=== PATIENT | female | born 1960 | race Caucasian/White ===

== ENCOUNTER 2016-06-24 12:14 | Observation (INO) | payer OTHER, MEDICAID ==
[2016-06-24] MEDS ORDERED: ASPIRIN 81 MG CHEWABLE TAB PO ONE (12:19)
[2016-06-24] MEDS ORDERED: NS 500 ML IV ONE (12:19)
--- NOTE | 2016-06-24 12:21 | EDPHY ---
H & P HPI/ROS: HPI CHIEF COMPLAINT: Palpitation, chest pressure HISTORY OF PRESENT ILLNESS: This patient is a 55-year-old female she does have significant past medical history for bipolar disorder and fibromyalgia, no known coronary or lung disease, she presents to the emergency room by EMS for chest discomfort. She describes a pressure center of her chest at times it radiates to her left shoulder. At times she does have tingling in her arms. She tells me this has been going on over the past week. Intermittently. HEENT she has never had this before. She also tells me she feels dyspneic with this. She does endorse a dry cough nonproductive no recent illness no fever. She decided to call 911 arrived by EMS due to the pressure in her chest that has been persisted. Past Medical History: Fibromyalgia, bipolar disorder Social History: Smokes cigarettes Family History: Noncontributory ROS REVIEW OF SYSTEMS: A comprehensive 10 point review of systems is otherwise negative aside from elements mentioned in the history of present illness. Exam Constitutional triage nursing summary reviewed, vital signs reviewed, awake/ alert. Eyes normal conjunctivae and sclera, EOMI, PERRLA. HENT normal inspection, atraumatic, moist mucus membranes, no epistaxis, neck supple/ no meningismus, no raccoon eyes. Respiratory clear to auscultation bilaterally, normal breath sounds, no respiratory distress, no wheezing. Cardiovascular rate normal, regular rhythm, no murmur, no edema, distal pulses normal. Gastrointestinal soft, non-tender, no rebound, no guarding, normal bowel sounds, no distension, no pulsatile mass. Genitourinary no CVA tenderness. Musculoskeletal no midline vertebral tenderness, full range of motion, no calf swelling, no tenderness of extremities, no meningismus, good pulses, neurovascularly intact. Skin pink, warm, & dry, no rash, skin atraumatic. Neurologic awake, alert and oriented x 3, AAOx3, moves all 4 extremities equally, motor intact, sensory intact, CN II-XII intact, normal cerebellar, normal vision, normal speech. Psychiatric normal mood/affect. Heme/Lymph/Immune no lymphadenopathy. Differential diagnosis includes but is not limited to: ACS, atypical chest pain , pneumothorax, pneumonia, pulmonary embolism, aortic dissection, congestive heart failure, tumor, musculoskeletal pain, esophageal pain, GERD, peptic ulcer disease, pancreatitis Medical Decision Making:The patient will be placed on a full ekg monitor tech IV will be established, patient receive full-dose aspirin, nitroglycerin to see if this improves her chest pressure. Will check an EKG, chest x-ray blood work. Re-evaluation: EKG interpretation by me on record in [employer] system. Impression time of EKG 1222 this is a normal sinus rhythm rate of 70 there is no acute ischemic change appreciated specifically no ST elevation, ST depression T-wave abnormality. 1316: Re-evaluation at this time: Patient is resting comfortably she is chest pain-free. Her EKG is nonischemic troponin is negative. Chest x-ray reviewed shows no acute disease. Due to her description of chest discomfort and history of cigarette use and age should be admitted to [facility] for chest pain evaluation and rule out. Patient does understand should be admitted for observation serial enzymes for her chest pain. Here in the emergency room she did receive full-dose aspirin and nitroglycerin this did improve her chest discomfort. 1320: Spoke with the hospitalist service agrees to admit this patient. Dr. Mccoy has accepted. Patient is hemodynamically stable for [facility] admission chest pain rule out pain Source: Patient, EMS - Medical/Surgical History Hx Asthma: No Hx Chronic Respiratory Disease: No Hx Diabetes: No Hx Cardiac Disease: No Hx Renal Disease: No Hx Cirrhosis: No Hx Alcoholism: No Hx HIV/AIDS: No Hx Splenectomy or Spleen Trauma: No Other PMH: pmh- anxiety, GERD, bipolar, UTI's, fibromyalgia, endometriosis, sciatica, herpes, chronic pain. psh- adrien, hysterectomy, , R knee arthroscopy, - Social History Smoking Status: Current every day smoker Constitutional: Initial Vital Signs O2 Sat (%) 96 06/24/16 12:19 O2 Delivery Mode Room Air O2 (L/minute) 2 Allergies/Adverse Reactions: codeine [Codeine] Allergy (Verified 06/24/16 12:23) codeine phosphate [From Tylenol-Codeine #3] Allergy (Verified 06/24/16 12:23) gluten Allergy (Verified 06/24/16 12:23) hydrocodone bitartrate [From Vicodin] Allergy (Verified 06/24/16 12:23) METAL Allergy (Uncoded 12/30/15 14:16) MOST PAIN MEDICATIONS Allergy (Uncoded 08/08/16 14:16) Home Medications: Medication Instructions Recorded clonazePAM [klonoPIN (*)] 0.5 - 1 mg PO DAILY PRN 01/16/16 Acyclovir [Zovirax 400 mg (*)] 400 mg PO BID #60 tab 01/24/16 Diclofenac Potassium [Zipsor] 25 mg PO QID #120 capsule 01/24/16 Docusate Sodium [Colace 100 MG (*)] 100 mg PO BID #0 cap 01/24/16 Omeprazole [Prilosec 20 mg] 40 mg PO BID #60 capsule. 01/24/16 QUEtiapine FUMARATE [Seroquel 200 400 mg PO HS #60 tab 01/24/16 mg (*)] Rosuvastatin Calcium [Crestor] 10 mg PO DAILY #30 tab 01/24/16 clonazePAM [klonoPIN (*)] 1 mg PO HS #30 tab 01/24/16 Crestor 06/24/16 LaMICtal 06/24/16 Medical Decision Making - Data Points Laboratory Results: Laboratory Results 06/24/16 12:15 06/24/16 12:15 06/24/16 12:15 WBC 5.73 10^3/uL (3.80-9.50) RBC 4.55 10^6/uL (4.18-5.33) Hgb 13.9 g/dL (12.6-16.3) Hct 41.7 % (38.0-47.0) MCV 91.6 fL (81.5-99.8) MCH 30.5 pg (27.9-34.1) MCHC 33.3 g/dL (32.4-36.7) RDW 14.7 % (11.5-15.2) Plt Count 231 10^3/uL (150-400) MPV 9.8 fL (8.7-11.7) Neut % (Auto) 70.6 % (39.3-74.2) Lymph % (Auto) 24.4 % (15.0-45.0) [place] % (Auto) 4.2 L % (4.5-13.0) Eos % (Auto) 0.2 L % (0.6-7.6) Baso % (Auto) 0.3 % (0.3-1.7) Nucleat RBC Rel Count 0.0 % (0.0-0.2) Absolute Neuts (auto) 4.04 10^3/uL (1.70-6.50) Absolute Lymphs (auto) 1.40 10^3/uL (1.00-3.00) Absolute Monos (auto) 0.24 L 10^3/uL (0.30-0.80) Absolute Eos (auto) 0.01 L 10^3/uL (0.03-0.40) Absolute Basos (auto) 0.02 10^3/uL (0.02-0.10) Absolute Nucleated RBC 0.00 10^3/uL (0-0.01) Immature Gran % 0.3 % (0.0-1.1) Immature Gran # 0.02 10^3/uL (0.00-0.10) PT 13.1 SEC (12.0-15.0) INR 1.00 (0.83-1.16) APTT 27.4 SEC (23.0-38.0) D-Dimer < 0.27 ug/mLFEU (0.00-0.50) Sodium 145 H mEq/L (134-144) Potassium 4.2 mEq/L (3.5-5.2) Chloride 109 mEq/L (97-110) Carbon Dioxide 27 mEq/l (22-31) Anion Gap 9 mEq/L (8-16) BUN 11 mg/dL (7-23) Creatinine 0.8 mg/dL (0.6-1.0) Estimated GFR > 60 Glucose 121 H mg/dL (70-100) Calcium 9.4 mg/dL (8.5-10.4) Magnesium 1.8 mg/dL (1.6-2.3) Total Bilirubin 0.5 mg/dL (0.1-1.4) Conjugated Bilirubin 0.3 mg/dL (0.0-0.5) Unconjugated Bilirubin 0.2 mg/dL (0.0-1.1) AST 22 IU/L (14-46) ALT 26 IU/L (9-52) Alkaline Phosphatase 100 IU/L (38-126) Creatine Kinase 132 IU/L (0-156) CK-MB (CK-2) Fraction 1.49 ng/mL (0-3.19) Troponin I < 0.012 ng/mL (0-0.034) NT-Pro-B Natriuret Pep 53 pg/mL (0-125) Total Protein 7.0 g/dL (6.3-8.2) Albumin 4.0 g/dL (3.5-5.0) Lipase 134.0 IU/L (23-300) Medications Given: Discontinued Medications Aspirin (Aspirin) 324 mg PO EDNOW ONE Stop: 06/24/16 12:20 Last Admin: 06/24/16 12:26 Dose: Not Given Sodium Chloride (Ns) 500 mls @ 0 mls/hr IV ONCE ONE PRN Reason: As Directed Stop: 06/24/16 12:20 Last Admin: 06/24/16 12:32 Dose: 500 mls Nitroglycerin (Nitrostat) 0.4 mg SL Q5M PRN PRN Reason: Chest Pain Stop: 06/24/16 12:30 Last Admin: 06/24/16 12:42 Dose: 1 tab Departure - Departure Disposition: [facility] Inpatient Acute Clinical Impression: Chest pain Qualifiers: Chest pain type: unspecified Qualifier Code: (R07.9) Chest pain, unspecified Condition: Fair Referrals: Alecia Galvin, [employer]MICAL TECHNICIAN [Primary Care Provider] - As per Instructions
--- NOTE | 2016-06-24 12:25 | CPEKG ---
Heart Rate: 78 RR Interval: 769 P-R Interval: 148 QRSD Interval: 78 QT Interval: 372 QTC Interval: 424 P Wid[place]: 45 QRS Widener: 5 T Wave Wid[place]: 12 EKG Severity - NORMAL ECG - EKG Impression: SINUS RHYTHM Electronically Signed By: Vince Mccauley 26-Jun-2016 05:38:57
[2016-06-24 12:26] VITALS: RESP 18
[2016-06-24] MEDS: NITROGLYCERIN 0.4 MG BTL SL PRN ×2 (12:32→12:42)
[2016-06-24 12:33] LABS: % IMMATURE GRANULYOCYTES 0.3 % (0.0-1.1); ABSOLUTE IMMATURE GRANULOCYTES 0.02 10^3/uL (0.00-0.10); ADD DIFF? NO; ADD MORPH? NO; ADD SCAN? NO; ATYPICAL LYMPHOCYTE FLAG 0 (0-99); FRAGMENT RBC FLAG 0 (0-99); HEMATOCRIT 41.7 % (38.0-47.0); HEMOGLOBIN 13.9 g/dL (12.6-16.3); LEFT SHIFT FLG 0 (0-99); LIPEMIA HEMOLYSIS FLAG 80 (0-99); MEAN CELL HEMOGLOBIN 30.5 pg (27.9-34.1); MEAN CELL HEMOGLOBIN CONCENTR. 33.3 g/dL (32.4-36.7); MEAN CELL VOLUME 91.6 fL (81.5-99.8); MEAN PLATELET VOLUME 9.8 fL (8.7-11.7); PLATELET CLUMPS FLAG 10 (0-99); PLATELET COUNT 231 10^3/uL (150-400); RED BLOOD CELL COUNT 4.55 10^6/uL (4.18-5.33); RED CELL DISTRIBUTION WIDTH 14.7 % (11.5-15.2)
[2016-06-24 12:43] LABS: APTT 27.4 SEC (23.0-38.0); PROTIME(PATIENT) 13.1 SEC (12.0-15.0)
[2016-06-24 12:52] LABS: ALANINE AMINOTRANSFERASE 26 IU/L (9-52); ALKALINE PHOSPHATASE 100 IU/L (38-126); ANION GAP 9 mEq/L (8-16); ASPARTATE AMINOTRANSFERASE 22 IU/L (14-46); BILIRUBIN,TOTAL 0.5 mg/dL (0.1-1.4); BILIRUBIN-CONJUGATED 0.3 mg/dL (0.0-0.5); BILIRUBIN-UNCONJUGATED 0.2 mg/dL (0.0-1.1); CALCIUM 9.4 mg/dL (8.5-10.4); CARBON DIOXIDE 27 mEq/l (22-31); CHLORIDE 109 mEq/L (97-110); CREATININE 0.8 mg/dL (0.6-1.0); GLOMERULAR FILTRATION RATE > 60; GLUCOSE 121 mg/dL (70-100); MAGNESIUM 1.8 mg/dL (1.6-2.3); POTASSIUM 4.2 mEq/L (3.5-5.2); SODIUM 145 mEq/L (134-144)
--- NOTE | 2016-06-24 12:53 | DX ---
Portable Chest, Single View 12:36 p.m. Hours Indication: Dizziness and weakness Comparison: Two-view chest dated December 19, 2007 Findings: Hypoventilation and diffuse mild peribronchial thickening are similar to November 2007. No pneu mothorax, airspace consolidation, edema or effusion. Heart size within normal limit for degree of ins piration. Minimal dextrocurvature of the thoracic spine is new. Impression: 1. No acute process. 2. Hypoventilation and mild airways disease similar to 2007.
[2016-06-24 13:01] LABS: CREATINE KINASE-MB FRACTION 1.49 ng/mL (0-3.19); TROPONIN I < 0.012 ng/mL (0-0.034)
[2016-06-24] MEDS ORDERED: HYDROmorphONE/DILAUDID 1 MG/ML SYR IVP ONE (13:16)
[2016-06-24] MEDS ORDERED: KETOROLAC 30 MG/1 ML SDV IVP ONE (13:21)
--- NOTE | 2016-06-24 14:51 | PDCPHP ---
History and Physical Chief Complaint: chest pain - History of Present Illness This is a 55 yo,White female with history of anxiety and hyperlipidemia presents with chest pain. It began at 1000 this morning while she was at rest. The pain is described as a substernal heaviness radiating to neck and left shoulder. The pain was associated with shortness of breath, lightheadedness, and numbness/tingling in her arms. Her symptoms have been ongoing since onset. No relief with NTG or pain meds. No previous episodes. She denies any exacerbating or alleviating factors. History Information - Allergies/Home Medication List Allergies/Adverse Reactions: codeine [Codeine] Allergy (Verified 06/24/16 12:23) codeine phosphate [From Tylenol-Codeine #3] Allergy (Verified 06/24/16 12:23) gluten Allergy (Verified 06/24/16 12:23) hydrocodone bitartrate [From Vicodin] Allergy (Verified 06/24/16 12:23) METAL Allergy (Uncoded 12/30/15 14:16) MOST PAIN MEDICATIONS Allergy (Uncoded 12/30/15 14:16) Home Medications: Acetaminophen [Tylenol 325mg (*)] 325 mg PO DAILY PRN 06/24/16 [Last Taken Unknown] Esomeprazole Mag Trihydrate [Nexium] 40 mg PO DAILY 06/24/16 [Last Taken ] Naproxen Sodium [Aleve 220 MG (*)] 220 mg PO DAILY PRN 06/24/16 [Last Taken Unknown] Rosuvastatin Calcium [Crestor 20mg (*)] 10 mg PO DAILY 06/24/16 [Last Taken 06/09] lamoTRIgine [LamICTAL 100 MG (*)] 100 mg PO HS 06/24/16 [Last Taken 06/23/16] I have personally reviewed and updated: family history, medical history, social history, surgical history Past Medical History: bipolar, hyperlipidemia, hsv2, oculopharyngeal, fibromyalgia - Past Medical History GERD - Surgical History Reports: cholecystectomy, hysterectomy Additional surgical history: c/s, right knee scope - Family History Positive for: diabetes type II - Social History Smoking Status: Current every day smoker Review of Systems ROS: 10pt was reviewed & negative except for what was stated in HPI & below YANG Risk Evaluation age greater or equal to 65: no greater or equal to 3 CAD risk factors: no known CAD(stenosis greater or eqaul to 50%): no ASA use in past 7 days: no severe angina(greater or equal to 2 episodes in 24hrs): no EKG ST changes greater or equal to 0.5mm: no positive cardiac marker: no Total Score: 0 YANG Score: 4.7% risk Physical Exam Temp Pulse Resp BP Pulse Ox 36.8 C 67 18 133/85 H 95 06/24/16 13:57 06/24/16 13:57 06/24/16 13:57 06/24/16 13:57 06/24/16 13:57 O2 (L/minute) 2 Constitutional: no apparent distress, appears nourished, not in pain Eyes: PERRL, anicteric sclera, EOMI Ears, Nose, Mouth, Throat: moist mucous membranes, hearing normal, ears appear normal, no oral mucosal ulcers Cardiovascular: regular rate and rhythym, no murmur, rub, or gallop, No edema Respiratory: no respiratory distress, no rales or rhonchi, clear to auscultation Gastrointestinal: normoactive bowel sounds, soft, non-tender abdomen, no palpable masses Genitourinary: no bladder fullness, no bladder tenderness Skin: warm Musculoskeletal: full muscle strength, no muscle tenderness, normal joint ROM, no joint effusions, other (tenderness to palp over the anterior left chest) Neurologic: AAOx3, CN II-XII Intact, No facial droop Psychiatric: interacting appropriately, not anxious, not encephalopathic, flat affect Lab Data & Imaging Review 06/24/16 12:15 06/24/16 12:15 WBC 5.73 10^3/uL (3.80-9.50) 06/24/16 12:15 RBC 4.55 10^6/uL (4.18-5.33) 06/24/16 12:15 Hgb 13.9 g/dL (12.6-16.3) 06/24/16 12:15 Hct 41.7 % (38.0-47.0) 06/24/16 12:15 MCV 91.6 fL (81.5-99.8) 06/24/16 12:15 MCH 30.5 pg (27.9-34.1) 06/24/16 12:15 MCHC 33.3 g/dL (32.4-36.7) 06/24/16 12:15 RDW 14.7 % (11.5-15.2) 06/24/16 12:15 Plt Count 231 10^3/uL (150-400) 06/24/16 12:15 MPV 9.8 fL (8.7-11.7) 06/24/16 12:15 Neut % (Auto) 70.6 % (39.3-74.2) 06/24/16 12:15 Lymph % (Auto) 24.4 % (15.0-45.0) 06/24/16 12:15 [place] % (Auto) 4.2 % (4.5-13.0) L 06/24/16 12:15 Eos % (Auto) 0.2 % (0.6-7.6) L 06/24/16 12:15 Baso % (Auto) 0.3 % (0.3-1.7) 06/24/16 12:15 Nucleat RBC Rel Count 0.0 % (0.0-0.2) 06/24/16 12:15 Absolute Neuts (auto) 4.04 10^3/uL (1.70-6.50) 06/24/16 12:15 Absolute Lymphs (auto) 1.40 10^3/uL (1.00-3.00) 06/24/16 12:15 Absolute Monos (auto) 0.24 10^3/uL (0.30-0.80) L 06/24/16 12:15 Absolute Eos (auto) 0.01 10^3/uL (0.03-0.40) L 06/24/16 12:15 Absolute Basos (auto) 0.02 10^3/uL (0.02-0.10) 06/24/16 12:15 Absolute Nucleated RBC 0.00 10^3/uL (0-0.01) 06/24/16 12:15 Immature Gran % 0.3 % (0.0-1.1) 06/24/16 12:15 Immature Gran # 0.02 10^3/uL (0.00-0.10) 06/24/16 12:15 PT 13.1 SEC (12.0-15.0) 06/24/16 12:15 INR 1.00 (0.83-1.16) 06/24/16 12:15 APTT 27.4 SEC (23.0-38.0) 06/24/16 12:15 D-Dimer < 0.27 ug/mLFEU (0.00-0.50) 06/24/16 12:15 Sodium 145 mEq/L (134-144) H 06/24/16 12:15 Potassium 4.2 mEq/L (3.5-5.2) 06/24/16 12:15 Chloride 109 mEq/L (97-110) 06/24/16 12:15 Carbon Dioxide 27 mEq/l (22-31) 06/24/16 12:15 Anion Gap 9 mEq/L (8-16) 06/24/16 12:15 BUN 11 mg/dL (7-23) 06/24/16 12:15 Creatinine 0.8 mg/dL (0.6-1.0) 06/24/16 12:15 Estimated GFR > 60 06/24/16 12:15 Glucose 121 mg/dL (70-100) H 06/24/16 12:15 Calcium 9.4 mg/dL (8.5-10.4) 06/24/16 12:15 Magnesium 1.8 mg/dL (1.6-2.3) 06/24/16 12:15 Total Bilirubin 0.5 mg/dL (0.1-1.4) 06/24/16 12:15 Conjugated Bilirubin 0.3 mg/dL (0.0-0.5) 06/24/16 12:15 Unconjugated Bilirubin 0.2 mg/dL (0.0-1.1) 06/24/16 12:15 AST 22 IU/L (14-46) 06/24/16 12:15 ALT 26 IU/L (9-52) 06/24/16 12:15 Alkaline Phosphatase 100 IU/L (38-126) 06/24/16 12:15 Creatine Kinase 132 IU/L (0-156) 06/24/16 12:15 CK-MB (CK-2) Fraction 1.49 ng/mL (0-3.19) 06/24/16 12:15 Troponin I < 0.012 ng/mL (0-0.034) 06/24/16 12:15 NT-Pro-B Natriuret Pep 53 pg/mL (0-125) 06/24/16 12:15 Total Protein 7.0 g/dL (6.3-8.2) 06/24/16 12:15 Albumin 4.0 g/dL (3.5-5.0) 06/24/16 12:15 Lipase 134.0 IU/L (23-300) 06/24/16 12:15 Urine Opiates Screen NEGATIVE (NEGATIVE) 06/24/16 13:30 Urine Barbiturates NEGATIVE (NEGATIVE) 06/24/16 13:30 Ur Phencyclidine Scrn NEGATIVE (NEGATIVE) 06/24/16 13:30 Ur Amphetamine Screen NEGATIVE (NEGATIVE) 06/24/16 13:30 U Benzodiazepines Scrn NEGATIVE (NEGATIVE) 06/24/16 13:30 Urine Cocaine Screen NEGATIVE (NEGATIVE) 06/24/16 13:30 U Marijuana (THC) Screen NEGATIVE (NEGATIVE) 06/24/16 13:30 Visualized and Interpreted Chest x-ray results: Yes Chest X-Ray results: normal Visualized and Interpreted EKG results: Yes EKG Interpretation: Positive for: normal sinsus rhythm (78 bpm). Negative for: Q waves, ST elevation, ST depression Assessment and Plan Assessment: This is a 55 yo,White,F presenting with chest pain at low risk ( YANG 0-1) for Acute coronary syndrome ddx: her pain seems atypical for ACS, most likely costochondritis vs anxiety vs GERD Plan: The patient will be placed in observation due to concerns for Acute Coronary Syndrome. * continuous telemetry to monitor for ST segment changes * monitor vital signs every 4 hours * repeat troponin at 16:00 * Arrange for outpatient stress test once chest pain is resolved, repeat troponin and EKG are negative, and the patient is symptom free for greater than 6 hours from the onset of pain * If the patient develops dynamic EKG changes consistent with ischemia/ infarction, troponin elevation, or has an abnormal stress test the patient will be treated for acute coronary syndrome as clinically indicated. * trial NSAIDS dc home once symptoms are improved
[2016-06-24] MEDS ORDERED: IBUPROFEN 600 MG TAB PO PRN (15:11)
[2016-06-24] MEDS ORDERED: ACETAMINOPHEN 325 MG TAB PO PRN (15:12)
[2016-06-24 15:30] VITALS: BP 113/79; PULSE 79; TEMP 97.7; O2SAT 93
--- NOTE | 2016-06-24 17:49 | GDS ---
[f rep st] DISCHARGE SUMMARY DISCHARGE DIAGNOSIS: Atypical chest pain, likely musculoskeletal in etiology. OBSERVATION COURSE AND STAY BY PROBLEM: Chest pain: The patient presented to the hospital after hav ing chest pain that began at 10 o'clock this morning and has been rather persistent since the onset. During the patient's observation course, she had 2 negative troponins and her second troponin was ne gative 6 hours after the onset of her pain. On exam, her chest pain was reproducible with palpation to the anterior chest wall. During her observation course, she was given Toradol which did help with the pain somewhat however, she continues to have some discomfort over her chest. On the afternoon of 06/24/2016 after the negative troponin came back, the patient verbalized to me an d her nurse that she feels comfortable with going home, which I think is reasonable given the fact th at her chest pain seems to be quite atypical. She will be set up for an outpatient stress test. She was encouraged to follow up with her primary care provider in the next few days for routine hospital followup. DISCHARGE MEDICATIONS: Please refer to discharge medication reconciliation in [facility] for details. There were no new medications added. DISCHARGE INSTRUCTIONS: The patient was discharged home in stable condition. /[id number]/MODL
[2016-06-24] MEDS ORDERED: lamoTRIgine 100 MG TAB PO SCH (21:00)
[2016-06-24] MEDS ORDERED: QUEtiapine FUMARATE 200 MG TAB PO SCH (21:00)
[2016-06-24] MEDS ORDERED: clonazePAM 1 MG TAB PO SCH (21:00)
[2016-06-24] MEDS ORDERED: ACYCLOVIR 400 MG TAB PO SCH (21:00)
[2016-06-25] MEDS ORDERED: ROSUVASTATIN CALCIUM 20 MG TAB PO SCH (09:00)
[2016-06-25] MEDS ORDERED: NON-FORMULARY NEW DRUG (Esomeprazole Mag Trihydrate [Nexium] 40 MG) PO SCH (09:00)
[2016-06-25] MEDS ORDERED: PANTOPRAZOLE SODIUM 40 MG TAB PO SCH (09:00)
== END 2016-06-24 17:41 | disposition home or self-care (01) ==
LOC: EDUNIT# → F1N 15:16
PROVIDERS: ADMIT Family Medicine; ATTEND Family Medicine
DX: R07.9 Chest pain, unspecified (principal); F31.9 Bipolar disorder, unspecified; M79.7 Fibromyalgia; F17.210 Nicotine dependence, cigarettes, uncomplicated; Z87.440 Personal history of urinary (tract) infections; F41.9 Anxiety disorder, unspecified; E78.5 Hyperlipidemia, unspecified; K21.9 Gastro-esophageal reflux disease without esophagitis
CPT/HCPCS: 71010; 93005; 96374; 99285; G0378; J1885; 80305

== ENCOUNTER 2016-07-02 13:11 | Emergency (ER) | payer OTHER, MEDICAID ==
--- NOTE | 2016-07-02 13:20 | CPEKG ---
Heart Rate: 74 RR Interval: 811 P-R Interval: 144 QRSD Interval: 86 QT Interval: 380 QTC Interval: 422 P [place]: 42 QRS [place]: 7 T Wave [place]: 31 EKG Severity - NORMAL ECG - EKG Impression: SINUS RHYTHM Electronically Signed By: Praneeth Marin 02-Jul-2016 13:49:34
--- NOTE | 2016-07-02 13:22 | EDPHY ---
H & P Time Seen by Provider: 07/02/16 13:21 HPI/ROS: CHIEF COMPLAINT: Chest pain HISTORY OF PRESENT ILLNESS: This 55-year-old woman was admitted to [facility] on June 24 of this year for chest pain. She ruled out by enzymes and was supposed to have an outpatient stress test. She presents today with 2 days of left-sided chest pain from her breast radiating to her left shoulder and back which is constant for the past 2 days. It is worse with movement and deep respiration. Not associated with jaw or arm symptoms or coughing or shortness of breath. It is better with ibuprofen. REVIEW OF SYSTEMS: Eye: no change in vision ENT: no sore throat Cardiac: HPI, no syncope or palpitations Pulmonary: no cough or SOB Abdomen: no vomiting, diarrhea, abdominal pain Musculoskeletal: no back pain or leg swelling Skin: no rash Neuro: no headache Constitutional: no fever : no urinary symptoms A comprehensive 10 point review of systems is otherwise negative aside from elements mentioned in the history of present illness. PAST MEDICAL HISTORY: Includes bipolar disorder on discharge summary from Dr. Tristan dated 02/19/2016, cholecystectomy, hysterectomy, , right knee arthroscopy. Social history: Tobacco smoker, family history of diabetes. General Appearance: Alert and conversant, cooperative. Eyes: No scleral icterus. ENT, Mouth: Normal mucous membranes. Respiratory: Normal respiratory effort, breath sounds equal, lungs are clear to auscultation. No splinting. Cardiovascular: Regular rate and rhythm. No murmurs. Gastrointestinal: Abdomen is soft and non tender. Neurological: Alert and oriented x3. Normally conversant. Face symmetric, normal movement and sensation in all extremities. Skin: Warm and dry, no rashes. No evidence of zoster over the left chest wall. Musculoskeletal: No peripheral edema and no joint swelling. No calf tenderness or swelling. Psychiatric: Not agitated. Emergency Department course/MDM: Patient presents with atypical chest pain which is I think unlikely to represent ACS. Toradol 30 mg IV, discharge with outpatient follow-up if troponin and D-dimer negative. 1500: Results discussed, feels better, stable for discharge. Smoking Status: Current every day smoker Constitutional: Initial Vital Signs Temperature (C) 36.4 C 07/02/16 13:23 Heart Rate 75 07/02/16 13:23 Respiratory Rate 16 07/02/16 13:23 Blood Pressure 136/75 H 07/02/16 13:23 O2 Sat (%) 98 07/02/16 13:23 O2 Delivery Mode Room Air Allergies/Adverse Reactions: codeine [Codeine] Allergy (Verified 06/24/16 12:23) codeine phosphate [From Tylenol-Codeine #3] Allergy (Verified 06/24/16 12:23) gluten Allergy (Verified 06/24/16 12:23) hydrocodone bitartrate [From Vicodin] Allergy (Verified 06/24/16 12:23) METAL Allergy (Uncoded 12/30/15 14:16) MOST PAIN MEDICATIONS Allergy (Uncoded 12/30/15 14:16) Home Medications: Medication Instructions Recorded Acyclovir [Zovirax 400 mg (*)] 400 mg PO BID #60 tab 01/24/16 QUEtiapine FUMARATE [Seroquel 200 400 mg PO HS #60 tab 01/24/16 mg (*)] clonazePAM [klonoPIN (*)] 1 mg PO HS #30 tab 01/24/16 Acetaminophen [Tylenol 325mg (*)] 325 mg PO DAILY PRN 06/24/16 Esomeprazole Mag Trihydrate 40 mg PO DAILY 06/24/16 [Nexium] Naproxen Sodium [Aleve 220 MG (*)] 220 mg PO DAILY PRN 06/24/16 Rosuvastatin Calcium [Crestor 20mg 10 mg PO DAILY 06/24/16 (*)] lamoTRIgine [LamICTAL 100 MG (*)] 100 mg PO HS 06/24/16 Medical Decision Making - Diagnostics EKG Interpretation: 12-lead EKG interpreted by me; official reading is in trace master. My interpretation is rate 74 sinus rhythm with no acute ischemic changes. Imaging: Chest x-ray viewed independently by myself is normal. Differential Diagnosis: Differential diagnosis considered for chest pain including but not limited to myocardial ischemia, aortic dissection, pericarditis, pulmonary embolus, chest wall pain, pleural inflammation and pulmonary infectious causes. - Data Points Laboratory Results: Laboratory Results 07/02/16 13:10 07/02/16 13:10 07/02/16 07/02/16 14:26 13:10 WBC 6.58 10^3/uL (3.80-9.50) RBC 4.73 10^6/uL (4.18-5.33) Hgb 14.7 g/dL (12.6-16.3) Hct 43.8 % (38.0-47.0) MCV 92.6 fL (81.5-99.8) MCH 31.1 pg (27.9-34.1) MCHC 33.6 g/dL (32.4-36.7) RDW 14.4 % (11.5-15.2) Plt Count 252 10^3/uL (150-400) MPV 10.3 fL (8.7-11.7) Neut % (Auto) 66.5 % (39.3-74.2) Lymph % (Auto) 28.0 % (15.0-45.0) [place] % (Auto) 4.6 % (4.5-13.0) Eos % (Auto) 0.3 L % (0.6-7.6) Baso % (Auto) 0.3 % (0.3-1.7) Nucleat RBC Rel Count 0.0 % (0.0-0.2) Absolute Neuts (auto) 4.38 10^3/uL (1.70-6.50) Absolute Lymphs (auto) 1.84 10^3/uL (1.00-3.00) Absolute Monos (auto) 0.30 10^3/uL (0.30-0.80) Absolute Eos (auto) 0.02 L 10^3/uL (0.03-0.40) Absolute Basos (auto) 0.02 10^3/uL (0.02-0.10) Absolute Nucleated RBC 0.00 10^3/uL (0-0.01) Immature Gran % 0.3 % (0.0-1.1) Immature Gran # 0.02 10^3/uL (0.00-0.10) D-Dimer < 0.27 ug/mLFEU (0.00-0.50) Sodium 147 H mEq/L (134-144) Potassium 4.3 mEq/L (3.5-5.2) Chloride 106 mEq/L (97-110) Carbon Dioxide 27 mEq/l (22-31) Anion Gap 14 mEq/L (8-16) BUN 11 mg/dL (7-23) Creatinine 0.8 mg/dL (0.6-1.0) Estimated GFR > 60 Glucose 111 H mg/dL (70-100) Calcium 9.7 mg/dL (8.5-10.4) Troponin I < 0.012 ng/mL (0-0.034) Medications Given: Discontinued Medications Ketorolac Tromethamine (Toradol) 30 mg IVP EDNOW ONE Stop: 07/02/16 13:46 Last Admin: 07/02/16 13:50 Dose: 30 mg Ondansetron HCl (Zofran) 4 mg IVP EDNOW ONE Stop: 07/02/16 13:52 Last Admin: 07/02/16 14:04 Dose: 4 mg Departure - Departure Disposition: Home, Routine, Self-Care Clinical Impression: Chest pain Qualifiers: Chest pain type: unspecified Qualifier Code: (R07.9) Chest pain, unspecified Condition: Good Instructions: Chest Pain (ED) Referrals: Alecia Galvin [employer] DEVELOPER [Primary Care Provider] - As per Instructions (Please follow-up is arranged on your discharge from a week ago for an outpatient stress test.)
[2016-07-02 13:26] VITALS: TEMP 97.5
[2016-07-02 13:40] LABS: % IMMATURE GRANULYOCYTES 0.3 % (0.0-1.1); ABSOLUTE IMMATURE GRANULOCYTES 0.02 10^3/uL (0.00-0.10); ADD DIFF? NO; ADD MORPH? NO; ADD SCAN? NO; ATYPICAL LYMPHOCYTE FLAG 0 (0-99); FRAGMENT RBC FLAG 0 (0-99); HEMATOCRIT 43.8 % (38.0-47.0); HEMOGLOBIN 14.7 g/dL (12.6-16.3); LEFT SHIFT FLG 0 (0-99); LIPEMIA HEMOLYSIS FLAG 80 (0-99); MEAN CELL HEMOGLOBIN 31.1 pg (27.9-34.1); MEAN CELL HEMOGLOBIN CONCENTR. 33.6 g/dL (32.4-36.7); MEAN CELL VOLUME 92.6 fL (81.5-99.8); MEAN PLATELET VOLUME 10.3 fL (8.7-11.7); PLATELET CLUMPS FLAG 0 (0-99); PLATELET COUNT 252 10^3/uL (150-400); RED BLOOD CELL COUNT 4.73 10^6/uL (4.18-5.33); RED CELL DISTRIBUTION WIDTH 14.4 % (11.5-15.2)
[2016-07-02] MEDS ORDERED: KETOROLAC 30 MG/1 ML SDV IVP ONE (13:45)
[2016-07-02] MEDS ORDERED: ONDANSETRON 4 MG/2 ML VIAL IVP ONE (13:51)
[2016-07-02 14:10] LABS: ANION GAP 14 mEq/L (8-16); CALCIUM 9.7 mg/dL (8.5-10.4); CARBON DIOXIDE 27 mEq/l (22-31); CHLORIDE 106 mEq/L (97-110); CREATININE 0.8 mg/dL (0.6-1.0); GLOMERULAR FILTRATION RATE > 60; GLUCOSE 111 mg/dL (70-100); POTASSIUM 4.3 mEq/L (3.5-5.2); SODIUM 147 mEq/L (134-144)
[2016-07-02 14:22] LABS: TROPONIN I < 0.012 ng/mL (0-0.034)
--- NOTE | 2016-07-02 14:31 | DX ---
PA and lateral chest. Clinical History: Chest pain Comparison Study: June 24, 2016. Findings: The lungs are clear. No pleural disease identified. Heart size is normal. Mild thoracic dextroscoliosis appears similar.. Impression: Stable negative chest.
[2016-07-02 15:17] VITALS: BP 126/75; PULSE 76; RESP 16; O2SAT 96
== END 2016-07-02 15:17 | disposition home or self-care (01) ==
LOC: EDUNIT#
DX: R07.9 Chest pain, unspecified (principal); F17.200 Nicotine dependence, unspecified, uncomplicated
CPT/HCPCS: 71020; 93005; 96374; 96375; 99285; J1885; J2405

== ENCOUNTER 2016-07-04 13:09 | Emergency (ER) | payer OTHER, MEDICAID ==
[2016-07-04 13:25] VITALS: RESP 16; TEMP 97.5
[2016-07-04] MEDS ORDERED: ONDANSETRON 4 MG/2 ML VIAL IVP ONE (13:27)
[2016-07-04] MEDS ORDERED: NS 500 ML IV ONE (13:47)
[2016-07-04] MEDS ORDERED: fentaNYL 100 MCG/2 ML INJ IVP ONE (13:47)
[2016-07-04] MEDS ORDERED: DIAZEPAM 10 MG/2 ML SYR IVP ONE (13:49)
[2016-07-04] MEDS ORDERED: KETOROLAC 30 MG/1 ML SDV IVP ONE (13:50)
[2016-07-04] MEDS ORDERED: ASPIRIN 81 MG CHEWABLE TAB PO ONE (13:51)
[2016-07-04 13:54] LABS: % IMMATURE GRANULYOCYTES 0.4 % (0.0-1.1); ABSOLUTE IMMATURE GRANULOCYTES 0.03 10^3/uL (0.00-0.10); ADD DIFF? NO; ADD MORPH? NO; ADD SCAN? NO; ATYPICAL LYMPHOCYTE FLAG 0 (0-99); FRAGMENT RBC FLAG 0 (0-99); HEMATOCRIT 42.8 % (38.0-47.0); LEFT SHIFT FLG 0 (0-99); LIPEMIA HEMOLYSIS FLAG 80 (0-99); MEAN CELL HEMOGLOBIN 30.2 pg (27.9-34.1); MEAN CELL HEMOGLOBIN CONCENTR. 32.7 g/dL (32.4-36.7); MEAN CELL VOLUME 92.4 fL (81.5-99.8); MEAN PLATELET VOLUME 10.7 fL (8.7-11.7); PLATELET CLUMPS FLAG 0 (0-99); PLATELET COUNT 244 10^3/uL (150-400); RED BLOOD CELL COUNT 4.63 10^6/uL (4.18-5.33); RED CELL DISTRIBUTION WIDTH 14.5 % (11.5-15.2)
--- NOTE | 2016-07-04 13:56 | EDPHY ---
H & P Time Seen by Provider: 07/04/16 13:20 HPI/ROS: CHIEF COMPLAINT: short of breath, lightheaded, ongoing chest pain HISTORY OF PRESENT ILLNESS: Patient is a 55-year-old female with a history of anxiety, GERD, bipolar disorder and fibromyalgia who presents to the emergency department with ongoing left-sided chest discomfort. Patient was seen in the emergency department on 07/02/2016 for left-sided chest pain. At that time she had a negative workup and was sent home. She has an out patient appointment with primary care physician Dr. Galvin. The patient states she has been having ongoing constant dull left sided chest pain. She also has mild shortness of breath. She has had intermittent episodes of lightheadedness. No vertigo. No focal weakness or numbness. No cough or fever. No leg pain or swelling. REVIEW OF SYSTEMS: My complete review of systems is negative except as mentioned in the HPI. Past Medical/Surgical History: Includes bipolar disorder, fibromyalgia, anxiety, GERD, endometriosis, sciatica , herpes, chronic pain Past surgical history: Includes cholecystectomy, hysterectomy, , orthopedic surgery Social history: The patient stop smoking last week. She denies drugs or alcohol. Family history: Diabetes Smoking Status: Current every day smoker Physical Exam: Vitals noted GENERAL: Well-appearing, in no acute distress, alert. HEENT: Eyes normal to inspection, normal pharynx, no signs of dehydration. NECK: No thyromegaly, no lymphadenopathy, supple. RESPIRATORY: Clear to auscultation bilaterally, no rales, rhonchi or wheezing. Chest wall: No tenderness palpation. No rash CVS: Regular rate and rhythm, no rubs, murmurs, or gallops. ABDOMEN: Soft, nontender, nondistended, no organomegaly. BACK: Normal to inspection, no CVA tenderness. SKIN: Normal color, no rash, warm, dry. No pallor. EXTREMITIES: No pedal edema, no calf tenderness, no Homans sign or cords, no joint swelling. NEURO/PSYCH: Alert and oriented, normal mood and affect, normal motor sensory exam. Constitutional: Initial Vital Signs Temperature (C) 36.4 C 07/04/16 13:23 Heart Rate 90 07/04/16 13:23 Respiratory Rate 16 07/04/16 13:23 Blood Pressure 107/64 02/11/17 13:23 O2 Sat (%) 96 07/04/16 13:23 O2 Delivery Mode Room Air Allergies/Adverse Reactions: codeine [Codeine] Allergy (Verified 06/24/16 12:23) codeine phosphate [From Tylenol-Codeine #3] Allergy (Verified 06/24/16 12:23) gluten Allergy (Verified 06/24/16 12:23) hydrocodone bitartrate [From Vicodin] Allergy (Verified 06/24/16 12:23) METAL Allergy (Uncoded 12/30/15 14:16) MOST PAIN MEDICATIONS Allergy (Uncoded 12/30/15 14:16) Home Medications: Medication Instructions Recorded Acyclovir [Zovirax 400 mg (*)] 400 mg PO BID #60 tab 01/24/16 QUEtiapine FUMARATE [Seroquel 200 400 mg PO HS #60 tab 01/24/16 mg (*)] clonazePAM [klonoPIN (*)] 1 mg PO HS #30 tab 01/24/16 Acetaminophen [Tylenol 325mg (*)] 325 mg PO DAILY PRN 06/24/16 Esomeprazole Mag Trihydrate 40 mg PO DAILY 06/24/16 [Nexium] Naproxen Sodium [Aleve 220 MG (*)] 220 mg PO DAILY PRN 06/24/16 Rosuvastatin Calcium [Crestor 20mg 10 mg PO DAILY 06/24/16 (*)] lamoTRIgine [LamICTAL 100 MG (*)] 100 mg PO HS 06/24/16 Medical Decision Making ED Course/Re-evaluation: I discussed possible etiologies with the patient. I answered all her questions. Laboratory studies and EKG were ordered. The patient has a normal oxygen saturation with clear breath sounds. She had a recent chest x-ray on 01/2017. I do not feel she needs a repeat chest x-ray: I reviewed the patient's laboratory studies. CBC was unremarkable. Chemistry was notable for an elevated sodium 149. I compared this with previous sodium level at 147. Troponin was negative. D-dimer was negative. 14 30: I discussed the results with the patient. I answered all her questions. She was feeling better. She had no respiratory distress on exam. Oxygen saturation was normal. I gave the patient warnings prior to leaving. She will return with worsening symptoms. Differential Diagnosis: My differential includes but is not limited to ACS, acute TX, aortic dissection , aneurysm, pericarditis, myocarditis, PE, chest wall plain, pleurisy, pneumonia , bronchitis - Data Points Laboratory Results: Laboratory Results 07/04/16 13:00 07/04/16 13:00 07/04/16 13:00 WBC 6.91 10^3/uL (3.80-9.50) RBC 4.63 10^6/uL (4.18-5.33) Hgb 14.0 g/dL (12.6-16.3) Hct 42.8 % (38.0-47.0) MCV 92.4 fL (81.5-99.8) MCH 30.2 pg (27.9-34.1) MCHC 32.7 g/dL (32.4-36.7) RDW 14.5 % (11.5-15.2) Plt Count 244 10^3/uL (150-400) MPV 10.7 fL (8.7-11.7) Neut % (Auto) 64.1 % (39.3-74.2) Lymph % (Auto) 30.0 % (15.0-45.0) [place] % (Auto) 4.9 % (4.5-13.0) Eos % (Auto) 0.3 L % (0.6-7.6) Baso % (Auto) 0.3 % (0.3-1.7) Nucleat RBC Rel Count 0.0 % (0.0-0.2) Absolute Neuts (auto) 4.43 10^3/uL (1.70-6.50) Absolute Lymphs (auto) 2.07 10^3/uL (1.00-3.00) Absolute Monos (auto) 0.34 10^3/uL (0.30-0.80) Absolute Eos (auto) 0.02 L 10^3/uL (0.03-0.40) Absolute Basos (auto) 0.02 10^3/uL (0.02-0.10) Absolute Nucleated RBC 0.00 10^3/uL (0-0.01) Immature Gran % 0.4 % (0.0-1.1) Immature Gran # 0.03 10^3/uL (0.00-0.10) D-Dimer 0.30 ug/mLFEU (0.00-0.50) Sodium 149 H mEq/L (134-144) Potassium 4.3 mEq/L (3.5-5.2) Chloride 107 mEq/L (97-110) Carbon Dioxide 27 mEq/l (22-31) Anion Gap 15 mEq/L (8-16) BUN 11 mg/dL (7-23) Creatinine 0.8 mg/dL (0.6-1.0) Estimated GFR > 60 Glucose 94 mg/dL (70-100) Calcium 9.7 mg/dL (8.5-10.4) Total Bilirubin Cancelled Conjugated Bilirubin Cancelled Unconjugated Bilirubin Cancelled AST Cancelled ALT Cancelled Alkaline Phosphatase Cancelled Troponin I < 0.012 ng/mL (0-0.034) Total Protein Cancelled Albumin Cancelled Lipase Cancelled Medications Given: Discontinued Medications Aspirin (Aspirin) 324 mg PO EDNOW ONE Stop: 07/04/16 13:52 Last Admin: 07/04/16 13:54 Dose: 324 mg Sodium Chloride (Ns) 500 mls @ 0 mls/hr IV ONCE ONE PRN Reason: Wide Open Stop: 07/04/16 13:48 Last Admin: 07/04/16 13:54 Dose: 500 mls Ketorolac Tromethamine (Toradol) 30 mg IVP EDNOW ONE Stop: 07/04/16 13:51 Last Admin: 07/04/16 13:54 Dose: 30 mg Ondansetron HCl (Zofran) 4 mg IVP EDNOW ONE Stop: 07/04/16 13:28 Last Admin: 07/04/16 13:32 Dose: 4 mg Departure - Departure Disposition: Home, Routine, Self-Care Clinical Impression: Chest pain Qualifiers: Chest pain type: precordial pain Qualifier Code: (R07.2) Precordial pain Condition: Good Instructions: Chest Pain (ED) Additional Instructions: Your laboratory studies were unremarkable. Your EKG was unchanged from your previous EKG. Return with increasing pain, shortness of breath or any other concerns. You need close follow-up with primary care physician. Referrals: Alecia Galvin [employer]PER[employer]OR [Primary Care Provider] - 2-3 days, call for appt.
[2016-07-04 14:13] LABS: ANION GAP 15 mEq/L (8-16); CARBON DIOXIDE 27 mEq/l (22-31); CHLORIDE 107 mEq/L (97-110); CREATININE 0.8 mg/dL (0.6-1.0); GLUCOSE 94 mg/dL (70-100); POTASSIUM 4.3 mEq/L (3.5-5.2); SODIUM 149 mEq/L (134-144)
[2016-07-04 14:14] LABS: CALCIUM 9.7 mg/dL (8.5-10.4); GLOMERULAR FILTRATION RATE > 60
[2016-07-04 14:25] LABS: TROPONIN I < 0.012 ng/mL (0-0.034)
[2016-07-04 14:35] VITALS: BP 121/87; PULSE 76
[2016-07-04 14:41] VITALS: O2SAT 98
== END 2016-07-04 14:52 | disposition home or self-care (01) ==
LOC: EDUNIT#
DX: R07.2 Precordial pain (principal); F17.200 Nicotine dependence, unspecified, uncomplicated; R42 Dizziness and giddiness
CPT/HCPCS: 96361; 96374; 96375; 99284; J1885; J2405

== ENCOUNTER 2016-07-15 14:55 | Emergency (ER) | payer OTHER, MEDICAID ==
[2016-07-15] MEDS ORDERED: KETOROLAC 30 MG/1 ML SDV IVP ONE (15:03)
--- NOTE | 2016-07-15 15:07 | EDPHY ---
H & P Time Seen by Provider: 07/15/16 14:56 HPI/ROS: CHIEF COMPLAINT: Right-sided chest HISTORY OF PRESENT ILLNESS: 55-year-old female presents to the emergency department by ambulance complaining of right-sided chest pain. The patient was seen in the emergency department 2 weeks ago was diagnosed with left-sided pleurisy. She states that this feels very similar but now it is on the right side. She has pain with taking a big deep breath. She otherwise does not feel short of breath. She denies any other chest pain. Denies abdominal pain. Denies neck or back pain. Denies any reported trauma. She did have URI symptoms a few weeks ago. She also reports that she has fibromyalgia but she feels that this is different than her typical chronic pain. She has taken Aleve however she states that this causes "burning sensation." REVIEW OF SYSTEMS: Constitutional: No fever, no chills. Eyes: No double or blurry vision. ENT: No sore throat. Respiratory: No cough, no shortness of breath. Cardiac: No chest pain. Gastrointestinal: No abdominal pain, vomiting or diarrhea. Genitourinary: No dysuria. Musculoskeletal: No neck or back pain. Skin: No rashes. Neurological: No headache. Past Medical/Surgical History: Bipolar, fibromyalgia, pleurisy diagnosed 2 weeks ago Social History: Single and lives in [place] Smoking Status: Current every day smoker Physical Exam: General Appearance: Alert, no distress. 95% on room air. No respiratory distress. Eyes: Pupils equal and round. Extraocular motions are all intact. ENT: Mouth: Mucous membranes moist. Respiratory: No wheezing, rhonchi, or rales, lungs are clear to auscultation. Reproducible pain with palpation to the right anterior chest wall just underneath the right breast. No palpable crepitus or other bony abnormality. Cardiovascular: Regular rate and rhythm. Gastrointestinal: Abdomen is soft and nontender, no masses, no rebound or guarding, bowel sounds normal. Neurological: Alert and oriented x 3, cranial nerves II through XII grossly intact Skin: Warm and dry, no rashes. Musculoskeletal: Nontender to palpate along the cervical, thoracic or lumbar spine. Neck is supple. Extremities: Full range of motion and no peripheral edema. Psychiatric: Patient is oriented X 3, there is no agitation. Constitutional: Initial Vital Signs Temperature (C) 36.7 C 02/22/17 15:06 Heart Rate 74 07/15/16 15:06 Respiratory Rate 18 07/15/16 15:06 Blood Pressure 141/82 H 07/15/16 15:06 O2 Sat (%) 97 07/15/16 15:06 O2 Delivery Mode Room Air Allergies/Adverse Reactions: codeine [Codeine] Allergy (Verified 06/24/16 12:23) codeine phosphate [From Tylenol-Codeine #3] Allergy (Verified 06/24/16 12:23) gluten Allergy (Verified 06/24/16 12:23) hydrocodone bitartrate [From Vicodin] Allergy (Verified 06/24/16 12:23) METAL Allergy (Uncoded 12/30/15 14:16) MOST PAIN MEDICATIONS Allergy (Uncoded 12/30/15 14:16) Home Medications: Medication Instructions Recorded Acyclovir [Zovirax 400 mg (*)] 400 mg PO BID #60 tab 01/24/16 QUEtiapine FUMARATE [Seroquel 200 400 mg PO HS #60 tab 01/24/16 mg (*)] clonazePAM [klonoPIN (*)] 1 mg PO HS #30 tab 01/24/16 Acetaminophen [Tylenol 325mg (*)] 325 mg PO DAILY PRN 06/24/16 Esomeprazole Mag Trihydrate 40 mg PO DAILY 06/24/16 [Nexium] Naproxen Sodium [Aleve 220 MG (*)] 220 mg PO DAILY PRN 06/24/16 Rosuvastatin Calcium [Crestor 20mg 10 mg PO DAILY 06/24/16 (*)] lamoTRIgine [LamICTAL 100 MG (*)] 100 mg PO HS 06/24/16 Medical Decision Making - Diagnostics Imaging: Chest x-ray reveals no acute pulmonary disease. ED Course/Re-evaluation: 55-year-old female presents to the emergency department complaining of right- sided chest pain that began earlier today. The patient states that this feels very similar to her previous pleurisy that she was diagnosed with on the left side 2 weeks ago. The patient is however requesting a chest x-ray. She also request IV Toradol. The patient has an O2 saturation on room air of 95%. She is in no respiratory distress. She has reproducible pain with palpation to the right anterior chest wall in the midclavicular line especially just below the right breast. Laboratory studies including D-dimer and troponin were negative. I doubt this patient has pulmonary embolism. The patient has reproducible pain with palpation along the right anterior chest wall. Chemistries are unremarkable. Chest x-ray was normal. Patient was given 30 mg of IV Toradol. She is comfortable being discharged home. I encouraged close follow-up with primary care provider. Differential Diagnosis: Including but not limited to costochondritis, pleurisy, bronchitis, pulmonary embolism - Data Points Laboratory Results: Laboratory Results 07/15/16 15:00 07/15/16 15:00 07/15/16 07/15/16 07/15/16 15:55 15:00 15:00 WBC 5.48 10^3/uL 10^3/uL (3.80-9.50) RBC 4.45 10^6/uL 10^6/uL (4.18-5.33) Hgb 13.7 g/dL g/dL (12.6-16.3) Hct 40.3 % % (38.0-47.0) MCV 90.6 fL fL (81.5-99.8) MCH 30.8 pg pg (27.9-34.1) MCHC 34.0 g/dL g/dL (32.4-36.7) RDW 14.2 % % (11.5-15.2) Plt Count 248 10^3/uL 10^3/uL (150-400) MPV 10.5 fL fL (8.7-11.7) Neut % (Auto) 62.5 % % (39.3-74.2) Lymph % (Auto) 31.9 % % (15.0-45.0) [place] % (Auto) 4.6 % % (4.5-13.0) Eos % (Auto) 0.4 % L % (0.6-7.6) Baso % (Auto) 0.4 % % (0.3-1.7) Nucleat RBC Rel Count 0.0 % % (0.0-0.2) Absolute Neuts (auto) 3.43 10^3/uL 10^3/uL (1.70-6.50) Absolute Lymphs (auto) 1.75 10^3/uL 10^3/uL (1.00-3.00) Absolute Monos (auto) 0.25 10^3/uL L 10^3/uL (0.30-0.80) Absolute Eos (auto) 0.02 10^3/uL L 10^3/uL (0.03-0.40) Absolute Basos (auto) 0.02 10^3/uL 10^3/uL (0.02-0.10) Absolute Nucleated RBC 0.00 10^3/uL 10^3/uL (0-0.01) Immature Gran % 0.2 % % (0.0-1.1) Immature Gran # 0.01 10^3/uL 10^3/uL (0.00-0.10) D-Dimer < 0.27 ug/mLFEU ug/mLFEU (0.00-0.50) Sodium 146 mEq/L H mEq/L (134-144) Potassium 4.3 mEq/L mEq/L (3.5-5.2) Chloride 107 mEq/L mEq/L (97-110) Carbon Dioxide 26 mEq/l mEq/l (22-31) Anion Gap 13 mEq/L mEq/L (8-16) BUN 13 mg/dL mg/dL (7-23) Creatinine 0.8 mg/dL mg/dL (0.6-1.0) Estimated GFR > 60 Glucose 112 mg/dL H mg/dL (70-100) Calcium 9.3 mg/dL mg/dL (8.5-10.4) Troponin I < 0.012 ng/mL ng/mL (0-0.034) Medications Given: Discontinued Medications Ketorolac Tromethamine (Toradol) 30 mg IVP EDNOW ONE Stop: 07/15/16 15:04 Last Admin: 07/15/16 15:15 Dose: 30 mg Ondansetron HCl (Zofran) 4 mg IVP EDNOW ONE Stop: 07/15/16 15:52 Last Admin: 07/15/16 16:00 Dose: 4 mg Departure - Departure Disposition: Home, Routine, Self-Care Clinical Impression: Right-sided chest wall pain Condition: Good Instructions: Chest Wall Pain (ED) Additional Instructions: Ibuprofen 600mg every 8 hours for pain as directed. Return if you have any change in symptoms or if you feel worse in any way. Follow up with your primary care provider this week or next week to recheck. Referrals: Patient,NotPresent [Unknown] - As per Instructions
[2016-07-15 15:11] VITALS: BP 141/82; PULSE 74; RESP 18; TEMP 98.1; O2SAT 97
[2016-07-15] MEDS ORDERED: ONDANSETRON 4 MG/2 ML VIAL IVP ONE (15:51)
[2016-07-15 16:03] LABS: % IMMATURE GRANULYOCYTES 0.2 % (0.0-1.1); ABSOLUTE IMMATURE GRANULOCYTES 0.01 10^3/uL (0.00-0.10); ADD DIFF? NO; ADD MORPH? NO; ADD SCAN? NO; ATYPICAL LYMPHOCYTE FLAG 0 (0-99); FRAGMENT RBC FLAG 0 (0-99); HEMATOCRIT 40.3 % (38.0-47.0); HEMOGLOBIN 13.7 g/dL (12.6-16.3); LEFT SHIFT FLG 0 (0-99); LIPEMIA HEMOLYSIS FLAG 90 (0-99); MEAN CELL HEMOGLOBIN 30.8 pg (27.9-34.1); MEAN CELL VOLUME 90.6 fL (81.5-99.8); MEAN PLATELET VOLUME 10.5 fL (8.7-11.7); PLATELET CLUMPS FLAG 0 (0-99); PLATELET COUNT 248 10^3/uL (150-400); RED BLOOD CELL COUNT 4.45 10^6/uL (4.18-5.33); RED CELL DISTRIBUTION WIDTH 14.2 % (11.5-15.2)
[2016-07-15 16:09] LABS: ANION GAP 13 mEq/L (8-16); CALCIUM 9.3 mg/dL (8.5-10.4); CARBON DIOXIDE 26 mEq/l (22-31); CHLORIDE 107 mEq/L (97-110); CREATININE 0.8 mg/dL (0.6-1.0); GLOMERULAR FILTRATION RATE > 60; GLUCOSE 112 mg/dL (70-100); POTASSIUM 4.3 mEq/L (3.5-5.2); SODIUM 146 mEq/L (134-144)
[2016-07-15 16:21] LABS: TROPONIN I < 0.012 ng/mL (0-0.034)
--- NOTE | 2016-07-15 16:51 | CPEKG ---
Heart Rate: 72 RR Interval: 833 P-R Interval: 148 QRSD Interval: 82 QT Interval: 400 QTC Interval: 438 P [place]: 41 QRS [place]: -8 T Wave [place]: 21 EKG Severity - NORMAL ECG - EKG Impression: SINUS RHYTHM Electronically Signed By: Ryan Anguiano 15-Jul-2016 23:45:26
== END 2016-07-15 17:00 | disposition home or self-care (01) ==
LOC: EDUNIT#
DX: R07.89 Other chest pain (principal); F17.200 Nicotine dependence, unspecified, uncomplicated
CPT/HCPCS: 71020; 93005; 96374; 96375; 99285; J1885; J2405

== ENCOUNTER 2016-10-21 22:26 | Emergency (ER) | payer OTHER, MEDICAID ==
--- NOTE | 2016-10-21 22:42 | EDPHY ---
H & P Source: Patient - Medical/Surgical History Hx Asthma: No Hx Chronic Respiratory Disease: No Hx Diabetes: No Hx Cardiac Disease: No Hx Renal Disease: No Hx Cirrhosis: No Hx Alcoholism: No Hx HIV/AIDS: No Hx Splenectomy or Spleen Trauma: No Other PMH: pmh- anxiety, GERD, bipolar, UTI's, fibromyalgia, endometriosis, sciatica, herpes, chronic pain. psh- adrien, hysterectomy, , R knee arthroscopy, - Social History Smoking Status: Current every day smoker HPI/ROS: HPI CHIEF COMPLAINT: anxiety, AH, "I want a Psych eval" HISTORY OF PRESENT ILLNESS: This patient very pleasant 56-year-old female significant past medical history for bipolar disorder, fibromyalgia, presents to the emergency room requesting a psychiatric evaluation. She states that she has bipolar and she feels psychotic at this time. She tells me she has paranoia , auditory hallucinations she feels psychotic. She is requesting mental health evaluation. She denies wanting to hurt herself or anybody else. Past Medical History: Bipolar disorder, fibromyalgia Past Surgical History: Denies recent surgical history Social History: Used to smoke tobacco but quit 4 months ago, denies illicit drugs or alcohol Family History: Noncontributory ROS REVIEW OF SYSTEMS: A comprehensive 10 point review of systems is otherwise negative aside from elements mentioned in the history of present illness. Exam Constitutional appears well nontoxic triage nursing summary reviewed, vital signs reviewed, awake/alert. Eyes normal conjunctivae and sclera, EOMI, PERRLA. HENT normal inspection, atraumatic, moist mucus membranes, no epistaxis, neck supple/ no meningismus, no raccoon eyes. Respiratory clear to auscultation bilaterally, normal breath sounds, no respiratory distress, no wheezing. Cardiovascular rate normal, regular rhythm, no murmur, no edema, distal pulses normal. Gastrointestinal soft, non-tender, no rebound, no guarding, normal bowel sounds, no distension, no pulsatile mass. Genitourinary no CVA tenderness. Musculoskeletal no midline vertebral tenderness, full range of motion, no calf swelling, no tenderness of extremities, no meningismus, good pulses, neurovascularly intact. Skin pink, warm, & dry, no rash, skin atraumatic. Neurologic awake, alert and oriented x 3, AAOx3, moves all 4 extremities equally, motor intact, sensory intact, CN II-XII intact, normal cerebellar, normal vision, normal speech. Psychiatric flat affect Heme/Lymph/Immune no lymphadenopathy. Differential Diagnosis: Includes but is not limited to in a particular order acute psychosis, bipolar disorder. Medical Decision Making: Plan for this patient blood draw, needs labs for medical clearance. Patient is voluntary wants to speak to mental health. After medically cleared we will have her evaluated by mental health. Re-evaluation: 0242AM: Patient has been evaluated by mental health. Plan is to look for a crisis stabilization unit for this patient. She has, cooperative at this time. 0647: No acute events overnight. Patient has been sleeping. Pending CSU admission. (Vince Mccauley) Constitutional: Initial Vital Signs Temperature (C) 36.6 C 10/21/16 22:31 Heart Rate 108 H 10/21/16 22:31 Respiratory Rate 18 10/21/16 22:31 Blood Pressure 122/78 H 10/21/16 22:31 O2 Sat (%) 90 L 10/21/16 22:31 O2 Delivery Mode Room Air Allergies/Adverse Reactions: codeine [Codeine] Allergy (Verified 06/24/16 12:23) codeine phosphate [From Tylenol-Codeine #3] Allergy (Verified 06/24/16 12:23) gluten Allergy (Verified 06/24/16 12:23) hydrocodone bitartrate [From Vicodin] Allergy (Verified 06/24/16 12:23) METAL Allergy (Uncoded 12/30/15 14:16) MOST PAIN MEDICATIONS Allergy (Uncoded 12/30/15 14:16) Home Medications: Medication Instructions Recorded Acyclovir [Zovirax 400 mg (*)] 400 mg PO BID #60 tab 01/24/16 QUEtiapine FUMARATE [Seroquel 200 400 mg PO HS #60 tab 01/24/16 mg (*)] clonazePAM [klonoPIN (*)] 1 mg PO HS #30 tab 01/24/16 Acetaminophen [Tylenol 325mg (*)] 325 mg PO DAILY PRN 06/24/16 Esomeprazole Mag Trihydrate 40 mg PO DAILY 06/24/16 [Nexium] Naproxen Sodium [Aleve 220 MG (*)] 220 mg PO DAILY PRN 06/24/16 Rosuvastatin Calcium [Crestor 20mg 10 mg PO DAILY 06/24/16 (*)] lamoTRIgine [LamICTAL 100 MG (*)] 100 mg PO HS 06/24/16 Medical Decision Making Other Provider: I received signout at 0700. Notified at 1:40pm that patient has been accepted to a CSU and will be transferred there. (Jason Tony) - Data Points Laboratory Results: Laboratory Results 10/21/16 22:47 10/21/16 22:47 Medications Given: Discontinued Medications Acetaminophen (Tylenol) 650 mg PO EDNOW ONE Stop: 10/22/16 11:30 Last Admin: 10/22/16 11:34 Dose: 650 mg Departure - Departure Disposition: Other Psych, Not [place] Clinical Impression: Kim Condition: Good Referrals: Patient,NotPresent [Unknown] - As per Instructions
[2016-10-21 22:57] LABS: % IMMATURE GRANULYOCYTES 0.5 % (0.0-1.1); ABSOLUTE IMMATURE GRANULOCYTES 0.03 10^3/uL (0.00-0.10); ADD DIFF? NO; ADD MORPH? NO; ADD SCAN? NO; ATYPICAL LYMPHOCYTE FLAG 0 (0-99); FRAGMENT RBC FLAG 0 (0-99); HEMATOCRIT 36.5 % (38.0-47.0); HEMOGLOBIN 12.4 g/dL (12.6-16.3); LEFT SHIFT FLG 0 (0-99); LIPEMIA HEMOLYSIS FLAG 90 (0-99); MEAN CELL HEMOGLOBIN 31.8 pg (27.9-34.1); MEAN CELL VOLUME 93.6 fL (81.5-99.8); MEAN PLATELET VOLUME 9.9 fL (8.7-11.7); PLATELET CLUMPS FLAG 0 (0-99); PLATELET COUNT 214 10^3/uL (150-400); RED CELL DISTRIBUTION WIDTH 13.3 % (11.5-15.2)
[2016-10-21 23:08] LABS: ANION GAP 12 mEq/L (8-16); CALCIUM 9.2 mg/dL (8.5-10.4); CARBON DIOXIDE 22 mEq/l (22-31); CHLORIDE 109 mEq/L (97-110); CREATININE 0.7 mg/dL (0.6-1.0); ETHANOL SERUM < 10 mg/dL (0-10); GLOMERULAR FILTRATION RATE > 60; GLUCOSE 134 mg/dL (70-100); POTASSIUM 3.4 mEq/L (3.5-5.2); SALICYLATE < 1.0 mg/dL (2.0-20.0); SODIUM 143 mEq/L (134-144)
[2016-10-22 07:48] VITALS: O2SAT 94
[2016-10-22] MEDS ORDERED: ACETAMINOPHEN 325 MG TAB PO ONE (11:29)
[2016-10-22 14:03] VITALS: BP 122/85; PULSE 85; RESP 18; TEMP 98.8
== END 2016-10-22 15:29 ==
LOC: EDUNIT#
DX: F30.9 Manic episode, unspecified (principal); F17.200 Nicotine dependence, unspecified, uncomplicated
CPT/HCPCS: 80305; G0480

== ENCOUNTER → 2017-02-12 | Outpatient (CLI) | payer OTHER, MEDICAID | LOC: FIMAGING 10:24 | PROVIDERS: ATTEND Nurse Practitioner | DX: R29.818 Other symptoms and signs involving the nervous system (principal); R41.89 Other symptoms and signs involving cognitive functions and awareness; R47.89 Other speech disturbances; Z51.81 Encounter for therapeutic drug level monitoring ==

== ENCOUNTER → 2017-04-09 | Outpatient (CLI) | payer OTHER, MEDICAID | LOC: FIMAGING 11:59 | PROVIDERS: ATTEND Physician Assistant | DX: M51.36 Other intervertebral disc degeneration, lumbar region (principal) ==

== ENCOUNTER → 2017-11-14 | Outpatient (CLI) | payer OTHER, MEDICAID | LOC: FCPNEURO 21:00 | PROVIDERS: ATTEND Student in an Organized Health Care Education/Training Program | DX: G47.33 Obstructive sleep apnea (adult) (pediatric) (principal); R09.02 Hypoxemia ==